=== PATIENT | female | born 1990 | race African-American/Black ===

== ENCOUNTER 2017-05-12 23:22 | Inpatient (IN) | payer OTHER ==
[2017-05-13] MEDS ORDERED: ePHEDrine SULFATE IV PRN (02:31)
[2017-05-13] MEDS ORDERED: STADOL IV PRN (02:31)
[2017-05-13] MEDS ORDERED: POLYCILLIN/NS 2 GM/100 ML 2 GM/100 ML BAG IV ONE (02:31)
[2017-05-13] MEDS ORDERED: BRETHINE SUB-Q PRN (02:31)
[2017-05-13] MEDS ORDERED: XYLOCAINE 2% INFILTRATI ONE ×2 (02:31→10:45)
[2017-05-13] MEDS ORDERED: MINERAL OIL PO PRN (02:31)
[2017-05-13] MEDS ORDERED: BRETHINE IVP PRN (02:31)
[2017-05-13] MEDS ORDERED: LACTATED RINGERS 1,000 ML IV SCH (03:00)
[2017-05-13] MEDS ORDERED: PITOCin/NS 20 UNIT/1000ML DRIP 20 UNITS/1,000 ML BAG IV SCH (03:00)
[2017-05-13 03:05] LABS: Hematocrit 42.5 % (30.3-42.9); Hemoglobin 14.8 gm/dl (10.1-14.3); Mean Corpuscular HGB Conc 35 % (30-34); Mean Corpuscular Hemoglobin 34 pg (28-32); Mean Corpuscular Volume 97 fl (79-97); Platelet Count 213 K/mm3 (140-440); Red Blood Count 4.37 M/mm3 (3.65-5.03); Red Cell Distribution Width 12.8 % (13.2-15.2); White Blood Count 16.3 K/mm3 (4.5-11.0)
[2017-05-13] MEDS: SUBLIMAZE IV PRN ×4 (04:05→10:48)
[2017-05-13] MEDS ORDERED: POLYCILLIN/NS 1 GM/50 ML 1 GM/50 ML BAG IV SCH (06:00)
[2017-05-13] MEDS ORDERED: NARCAN 2 MG/2 ML ONE (08:58)
[2017-05-13] MEDS ORDERED: PITOCin/NS 30 UNIT/500ML 30 UNITS/500 ML BAG IV SCH (10:00)
--- NOTE | 2017-05-13 10:03 | History and Physical Report ---
History of Present Illness Date of examination: 05/13/17 Date of admission: 05/13/17 02:42 Chief complaint: Intense Labor Pains History of present illness: Late transfer into care from [facility] at 24 3/7 Weeks. IVF . Taking Glyburide 1.25mg daily due to Pre gestational Diabetes. Diabetes has been well- controlled. Past History Past Medical History: no pertinent history Past Surgical History: other (In Vitro Fertilization) Family/Genetic History: diabetes (Mother and Father), heart disease (Father), hypertension (Mother and Father) Social history: no significant social history, - Obstetrical History Expected Date of Delivery: 05/26/17 Actual Gestation: 38 Week(s) 1 Day(s) : 1 Medications and Allergies Allergies Allergy/AdvReac Type Severity Reaction Status Date / Time No Known Allergies Allergy Unverified 05/12/17 23:54 Home Medications Medication Instructions Recorded Confirmed Last Taken Type glyBURIDE [Glyburide] 1.25 mg DAILY 05/13/17 05/13/17 1 Day Ago History ~05/12/17 1.25 Active Meds: Active Medications Butorphanol Tartrate (Stadol) 2 mg IV Q2H PRN PRN Reason: Pain , Severe (7-10) Ephedrine Sulfate (Ephedrine Sulfate) 10 mg IV Q2M PRN PRN Reason: Hypotension Fentanyl (Sublimaze) 100 mcg IV Q2H PRN PRN Reason: Labor Pain Last Admin: 05/13/17 08:49 Dose: 100 mcg Lactated Ringer's (Lactated Ringers) 1,000 mls @ 125 mls/hr IV DIRECT [place] Last Admin: 05/13/17 04:05 Dose: 125 mls/hr Oxytocin/Sodium Chloride (Pitocin/Ns 20 Unit/1000ml Drip) 20 units in 1,000 mls @ 125 mls/hr IV DIRECT [place] Ampicillin Sodium (Polycillin/Ns 1 Gm/50 Ml) 1 gm in 50 mls @ 100 mls/hr IV Q4HR [place] PRN Reason: Protocol Oxytocin/Sodium Chloride (Pitocin/Ns 30 Unit/500ml) 30 units in 500 mls @ 4 mls /hr IV TITR [place] PRN Reason: Protocol Mineral Oil (Mineral Oil) 30 ml PO QHS PRN PRN Reason: Constipation Terbutaline Sulfate (Brethine) 0.25 mg SUB-Q ONCE PRN PRN Reason: Hyperstimulation/Hypertonicity Terbutaline Sulfate (Brethine) 0.25 mg IVP ONCE PRN PRN Reason: Hyperstimulation/Hypertonicity Review of Systems All systems: negative - Vital Signs Vital signs: Vital Signs Temp Pulse Resp BP Pulse Ox 98.7 F 100 H 18 119/68 98 05/12/17 23:48 05/12/17 23:48 05/12/17 23:48 05/12/17 23:48 05/12/17 23:48 Temp Pulse Resp BP Pulse Ox 97.3 F L 101 H 18 110/59 97 05/13/17 07:27 05/13/17 09:51 05/13/17 07:27 05/13/17 09:51 05/13/17 06:49 - Physical Exam Breasts: Positive: normal Lungs: Positive: Clear to auscultation Abdomen: Positive: normal appearance, soft, normal bowel sounds Genitourinary (Female): Positive: normal external genitalia, normal perenium Vagina: Positive: other (Large amount of bloody show) Uterus: Positive: enlarged - Obstetrical FHR: category 2 FHR comments: FHR: 130, min to moderate varability, -accels, +isolated early decels Uterine Contraction Monitor Mode: External Cervical Dilatation: 8 (Small amount of bloody fluid upon AROM at 0940) Cervical Effacement Percentage: 100 station: 0 Uterine Contraction Pattern: Regular Uterine Tone Measurement Phase: Resting Uterine Contraction Intensity: Moderate Results Result Diagrams: 05/13/17 02:42 Abnormal lab results 05/13/17 05/13/17 Range/Units 02:42 05:16 WBC 16.3 H (4.5-11.0) K/mm3 Hgb 14.8 H (10.1-14.3) gm/dl MCH 34 H (28-32) pg MCHC 35 H (30-34) % RDW 12.8 L (13.2-15.2) % POC Glucose 67 L (70-105) All other labs normal. Assessment and Plan A: IUP @ 38 1/7 Weeks Active Labor Pre-Gestational Diabetes GBS Negative P: Admit to L&D per routine orders Pitocin Augmentation AROM
[2017-05-13] MEDS ORDERED: BENADRYL PO PRN (11:10)
[2017-05-13] MEDS ORDERED: MILK OF MAGNESIA PO PRN (11:10)
[2017-05-13] MEDS ORDERED: LANSINOH TP PRN (11:10)
--- NOTE | 2017-05-13 11:19 | Procedure Note ---
OB Delivery Note - Delivery Date of Delivery: 05/13/17 (1040) Surgeon: STEVEN MILNER Estimated blood loss: 300cc - Vaginal Delivery presentation: vertex Delivery position: OA Delivery augmentation: rupture of membranes, pitocin Delivery monitor: external FHT, external uterine Route of delivery: Delivery placenta: spontaneous Delivery cord: 3 umbilical vessels Episiotomy: none Delivery laceration: 2nd degree Delivery repair: vicryl Anesthesia: local Delivery comments: of a live 5'15 female over a 2nd degree perineal laceration under IV pain control with Apgars of 9 and 9 at 1040 on 05/13/2017. Infant directly to maternal abd/chest, skin to skin contact. Perineal laceration repaired with 2-0 Vicryl on a SH under local 2% Lidocaine. Spontaneous delivery of placenta complete and intact with Watson side presenting at 1045. Fundus is firm and midline located 4 below the U. Lochia is scant. Delayed cord clamping and cutting; Cord cut by the patient. Cord blood collected; placenta discarded. - A at 1 minute: 9 at 5 minutes: 9 Gender: Female (5'15)
[2017-05-13] MEDS ORDERED: SODIUM CHLORIDE FLUSH SYRINGE 10 ML IV NR (12:00)
[2017-05-13] MEDS: MOTRIN PO SCH (19:02)
[2017-05-14 00:19] LABS: Hematocrit 36.4 % (30.3-42.9); Hemoglobin 12.3 gm/dl (10.1-14.3)
[2017-05-14] MEDS: DIABETA PO SCH ×2 (08:00→17:30)
--- NOTE | 2017-05-14 10:22 | Progress Note ---
Assessment and Plan A: PP Day #1 Stable Pre-Gestational Diabetes P: Follow Routine Orders D/C home today per patient request Continue GDM Diet, Accuchecks, and Glyburide 1.25mg daily RTO in 2 weeks Subjective - Subjective Date of service: 05/14/17 Interval history: Late transfer into care from [facility] at 24 3/7 Weeks. IVF . Taking Glyburide 1.25mg daily due to Pre gestational Diabetes. Diabetes has been well- controlled. Patient reports: appetite normal, voiding normally, pain well controlled, flatus , ambulating normally [place]: doing well Objective - Vital Signs Latest vital signs: Vital Signs Temp Pulse Resp BP BP Pulse Ox 05/14/17 00:00 98.8 F 98 H 18 112/68 05/13/17 23:30 98.2 F 100 H 18 110/65 05/13/17 16:52 98.8 F 122 H 22 100/56 96 05/13/17 12:17 97 H 113/63 05/13/17 12:02 101 H 101/64 05/13/17 12:01 97.5 F L 05/13/17 11:47 105 H 107/64 05/13/17 11:32 111 H 103/62 05/13/17 11:00 97.8 F 05/13/17 10:51 113 H 120/67 Intake and Output 05/13/17 05/14/17 05/14/17 22:59 06:59 14:59 Intake Total 240 120 Output Total 400 Balance -160 120 Intake: Oral 240 120 Output: Urine 400 Void 400 Other: Total, Intake Amount 240 120 Total, Output Amount 400 # Voids Void 1 1 - Exam Breasts: Present: normal Cardiovascular: Present: Regular rate Lungs: Present: Clear to auscultation, Normal air movement Abdomen: Present: normal appearance, soft, normal bowel sounds Uterus: Present: normal, firm, fundal height below umbilicus Extremities: Present: normal
--- NOTE | 2017-05-14 10:24 | Discharge Summary ---
Providers - Providers Date of Admission: 05/13/17 02:42 Date of discharge: 05/14/17 Attending physician: HELENE JAVED MD Primary care physician: HELENE JAVED MD Hospitalization Reason for admission: active labor Delivery: Episiotomy: none Laceration: 2nd degree Other procedures: none complications: none Discharge diagnosis: IUP at term delivered [place] baby: female Condition at discharge: Good Disposition: DC-01 TO HOME OR SELFCARE Plan - Provider Discharge Summary Activity: routine, no sex for 6 weeks, no heavy lifting 4 weeks, no strenuous exercise Diet: routine Instructions: routine Additional instructions: [] Smoking cessation referral if applicable(refer to patient education folder for contact #) [] Refer to [facility]'s [facility] Booklet Call your doctor immediately for: * Fever > 100.5 * Heavy vaginal bleeding ( >1 pad per hour) * Severe persistent headache * Shortness of breath * Reddened, hot, painful area to leg or breast * Drainage or odor from incision. * Keep incision clean and dry at all times and follow doctor's instructions regarding bathing/showering - Follow up plan Follow up: HELENE JAVED MD [Primary Care Provider] - 14 Days
[2017-05-14] MEDS: PRENATAL VITAMIN PO SCH (12:40)
[2017-05-14] MEDS: MOTRIN PO SCH ×2 (12:45→19:09)
[2017-05-14] MEDS: TUCKS PAD TP PRN (19:10)
[2017-05-15] MEDS: TUCKS PAD TP PRN (02:34)
[2017-05-15] MEDS: DIABETA PO SCH (08:30)
[2017-05-15] MEDS: NORCO 5/325 PO PRN ×2 (11:23→12:55)
[2017-05-15] MEDS: PRENATAL VITAMIN PO SCH (11:23)
[2017-05-15] MEDS: MOTRIN PO SCH (11:23)
[2017-05-15 13:00] VITALS: BP 112/72
== END 2017-05-15 16:00 | disposition home or self-care (01) | DRG 774 ==
LOC: TRG 23:22 → LD 05-13 02:42 → OB 05-13 13:00
PROVIDERS: ADMIT Obstetrics & Gynecology; ATTEND Obstetrics & Gynecology
PROC: 10E0XZZ Delivery of Products of Conception, External Approach (ICD-10-PCS; principal; 2017-05-13)
PROC: 0KQM0ZZ Repair Perineum Muscle, Open Approach (ICD-10-PCS; 2017-05-13)
PROC: 10907ZC Drainage of Amniotic Fluid, Therapeutic from Products of Conception, Via Natural or Artificial Opening (ICD-10-PCS; 2017-05-13)
DX: O24.32 Unspecified pre-existing diabetes mellitus in childbirth (principal); O70.1 Second degree perineal laceration during delivery; Z3A.38 38 weeks gestation of pregnancy; Z37.0 Single live birth; Z83.3 Family history of diabetes mellitus; Z82.49 Family history of ischemic heart disease and other diseases of the circulatory system; Z79.899 Other long term (current) drug therapy; E11.9 Type 2 diabetes mellitus without complications
CPT/HCPCS: 36415; 82962; 85014; 85018; 85027; 86592; 86850; 86900; 86901; 99211; A6250; G0463; J0290; J2310; J2590; J3010; J7120